=== PATIENT | male | born 1970 | race African-American/Black ===

== ENCOUNTER 2021-03-29 13:37 | Outpatient (CLI) | payer OTHER, SELFPAY ==
--- NOTE | ~2021-03-29 | CT_ITS ---
EXAMINATION: CT lumbar spine wo con DATE: 03/29/2021 14:11 INDICATION: Low back pain. Lumbar fusion. TECHNIQUE: Computed tomography (CT) of the lumbar spine was performed without intravenous contrast. A utomated exposure control and iterative reconstruction technique were employed. The dose-length produ ct was 399.00 mGy-cm. COMPARISON: None FINDINGS: There is 5 degrees levocurvature of thoracolumbar spine. There is 3 mm retrolisthesis of L2 on L3 and L3 on L4. There are changes of anterior and posterior fusion procedures from L4 to S1 with healed interbody bone graft, anterior plate and screws, and right-sided pedicle screws. There is mod erately decreased disc height at T12-L1, mildly decreased disc height at L1-L2, severely decreased di sc height at L2-L3, and moderately decreased disc height at L3-L4 with endplate remodeling. Osseous c entral spinal canal is developmentally small in lumbar spine. The following disc levels are specifica lly discussed: L1-L2: The disc is bulging. There is no facet joint osteoarthritis. There is mild bilateral neural fo raminal stenosis. There is mild central canal stenosis. L2-L3: The disc is bulging. There is severe left facet joint osteoarthritis. There is moderate bilate ral neural foraminal stenosis. There is mild central canal stenosis. L3-L4: The disc is bulging. There is mild bilateral facet joint osteoarthritis. There is mild right a nd moderate left neural foraminal stenosis. There is mild central canal stenosis. L4-L5: There is mild bilateral facet joint hypertrophy. There is mild left neural foraminal stenosis. There is no central canal stenosis. L5-S1: There is mild right and moderate left facet joint hypertrophy. There is mild bilateral neural foraminal stenosis. There is no central canal stenosis. IMPRESSION: 1. Severe lumbar spondylosis. 2. Anterior and posterior fusion procedures from L4 to S1. Reviewed, dictated and finalized at location D. SALES CONSULTANT
--- NOTE | ~2021-03-29 | CT_ITS ---
EXAMINATION: CT pelvis wo con DATE: 03/29/2021 14:11 INDICATION: Low back pain TECHNIQUE: High resolution computed tomography (CT) of the pelvis was performed without intravenous c ontrast. Additional sagittal and coronal reconstructions were performed. Automated exposure control a nd iterative reconstruction technique were employed. The dose-length product was 225.68 mGy-cm. COMPARISON: None FINDINGS: No fracture or evident osteonecrosis. L4-S1 combined instrumented anterior and posterior spinal fusio n with incorporated bone graft cages at both disc spaces, anterior plate and screw fixation of both l evels and right-sided vertical mingo and pedicle screw fixation. Mild osteoarthritis at the bilateral h ip and sacroiliac joints. Chondrocalcinosis at the bilateral acetabular labrum. The right anterior wa ll of the bladder projects slightly into a small right inguinal hernia. Within the right inguinal can al is a 3.7 x 1.7 x 1.7 cm ovoid region of near fluid attenuation which could represent either fluid or potentially the right testis. Visualized portions of the bowels in the pelvis are normal. Prostato megaly measuring 5.5 x 4.1 cm. IMPRESSION: 1. L4-S1 combined instrumented anterior and posterior spinal fusion. 2. Bilateral labral chondrocalcinosis with mild osteoarthritis at both hips. 3. Mild osteoarthritis at the bilateral sacral iliac joints. 4. Ovoid region of near fluid attenuation along the right inguinal canal which could represent a smal l amount of ascites or potentially the right testis. Correlate with physical exam and/or scrotal ultr asound as clinically indicated. Reviewed, dictated and finalized at location A. CTOR CLIENT IMPRESSION: 1. L4-S1 combined instrumented anterior and posterior spinal fusion. 2. Bilateral labral chondrocalcinosis with mild osteoarthritis at both hips. 3. Mild osteoarthritis at the bilateral sacral iliac joints. 4. Ovoid region of near fluid attenuation along the right inguinal canal which could represent a small amount of ascites or potentially the right testis. Irene elate with physical exam and/or scrotal ultrasound as clinically indicated.
== END 2021-03-29 13:38 ==
LOC: MICIMG 13:40
PROVIDERS: PCP Family Medicine; Visit Provider Family Medicine
DX: M54.50 Low back pain, unspecified (principal); Z98.1 Arthrodesis status; M16.0 Bilateral primary osteoarthritis of hip; M47.898 Other spondylosis, sacral and sacrococcygeal region; M47.816 Spondylosis without myelopathy or radiculopathy, lumbar region
CPT/HCPCS: 72131; 72192

== ENCOUNTER 2022-04-14 07:45 | Outpatient (CLI) | payer OTHER, SELFPAY ==
--- NOTE | ~2022-04-14 | MR_ITS ---
EXAMINATION: MR cervical spine wo con DATE: 04/14/2022 08:25 INDICATION: Neck pain, spinal stenosis. Injured at work. TECHNIQUE: Magnetic resonance imaging (MRI) of the cervical spine was performed without intravenous c ontrast. Sequences included sagittal T2-weighted FSE, sagittal T2-weighted FS FSE, sagittal T1-weight ed FSE, axial MERGE, and axial T2-weighted FSE. COMPARISON: X-ray C-spine, same date FINDINGS: Cervical spine straightening. Craniocervical association and atlantoaxial joint are intact, with mild edematous/fluid signal change and mild degenerative change. Normal alignment. Mild anterio r wedge deformity at C6, height loss at C6 and C7 with mild diffuse edematous marrow signal change. M arrow signal change in the superior aspect of T1 likely related to degenerative disc changes. Multile adam disc height loss and dehydration. Thinning of the mid cervical cord. Abnormal cord signal spannin g C4-C6. Normal cervicomedulary junction. The following disc levels are specifically discussed: C2-C3: The disc does not extend beyond the endplate margin. There is mild uncovertebral joint osteoar thritis. There is mild facet joint osteoarthritis. There is no neural foraminal stenosis. There is no central canal stenosis. C3-C4: Mild diffuse bulge. There is moderate bilateral uncovertebral joint osteoarthritis. There is m oderate left and mild right facet joint osteoarthritis. There is severe left and moderate right neura l foraminal stenosis. There is moderate central canal stenosis. C4-C5: Large diffuse bulge with a small central protrusion. There is moderate bilateral uncovertebral joint osteoarthritis. There is moderate bilateral facet joint osteoarthritis. There is severe bilate ral neural foraminal stenosis. There is severe central canal stenosis. C5-C6: Large diffuse bulge. There is moderate bilateral uncovertebral joint osteoarthritis. There is mild bilateral facet joint osteoarthritis. There is severe bilateral neural foraminal stenosis. There is severe central canal stenosis. C6-C7: Large diffuse bulge. There is moderate bilateral uncovertebral joint osteoarthritis. There is mild bilateral facet joint osteoarthritis. There is moderate left and severe right neural foraminal s tenosis. There is moderate central canal stenosis. C7-T1: Mild diffuse bulge. There is severe bilateral uncovertebral joint osteoarthritis. There is mil d bilateral facet joint osteoarthritis. There is moderate bilateral neural foraminal stenosis. There is mild central canal stenosis. IMPRESSION: 1. Mild anterior wedge deformity at C6 with marrow edema at C6 and C7 which may be related to post tr aumatic change or degenerative change. 2. Severe central canal narrowing at C4-5 and C5-6 with abnormal signal change and thinning of the ce rvical cord. 3. Multilevel degenerative disc, uncovertebral joint, and facet changes, with varying degrees of neur al foraminal narrowing detailed above. Reviewed, dictated and finalized at location K. IAN TEACHER IMPRESSION: 1. Mild anterior wedge deformity at C6 with marrow edema at C6 and C7 which may be related to post traumatic change or degenerative change. 2. Severe central canal narrowing at C4-5 and C5-6 with abnormal signal change and thinning of the cervical cord. 3. Multilevel degenerative disc, uncovertebral joint, and facet changes, with v arying degrees of neural foraminal narrowing detailed above.
--- NOTE | ~2022-04-14 | XR_ITS ---
XR cervical spine 4-5V DATE: 04/14/2022 08:33 INDICATION: Difficulty flexing and extending neck. Spinal stenosis. TECHNIQUE: AP, lateral and flexion and extension lateral views COMPARISON: None FINDINGS: There is straightening of the cervical spine. C1 and C2 are normally aligned and the odonto id process is intact. No fracture or dislocation or locked facet or prevertebral soft tissue swelling . Mild degenerative disc disease at C3-4. Moderate degenerative disc disease and mild retrolisthesis at C4-5. Moderate degenerative disc disease C5-6 Moderately severe degenerative disc disease at C6-7 and C7-T1. There is uncovertebral joint spurring in the mid and lower cervical spine. No instability is noted on flexion or extension. IMPRESSION: Straightening of the cervical spine Cervical spondylosis Reviewed, dictated and finalized at location A. UCT PLANNER
== END 2022-04-14 07:46 | disposition home or self-care (01) ==
PROVIDERS: PCP Family Medicine; Visit Provider Neurological Surgery
DX: M48.02 Spinal stenosis, cervical region (principal); M50.30 Other cervical disc degeneration, unspecified cervical region; M47.892 Other spondylosis, cervical region
CPT/HCPCS: 72050; 72141

== ENCOUNTER 2022-07-13 10:22 | Outpatient (CLI) | payer OTHER, SELFPAY ==
--- NOTE | ~2022-07-13 | XR_ITS ---
XR cervical spine 4-5V 07/13/2022 12:18 Indication: Limited extension mobility. Chronic neck pain. Procedure: 4 views of the cervical spine Comparison: 04/14/2022 Findings: There is mild chronic wedge compression deformity of C6-7. There is disc narrowing at C3-4 through C7-T1. There are small ventral osteophytes at most cervical levels. No significant alteration of alignment with flexion/extension. No prevertebral soft tissue swelling. Odontoid process is sen l. There is mild multilevel uncinate hypertrophy at C3-4 through C6-7. Lung apices are normal. Impression: 1: Moderate cervical spondylosis unchanged. 2: Chronic wedge shaped deformity of C6 unchanged. Reviewed, dictated and finalized at location B. Impression: 1: Moderate cervical spondylosis unchanged. 2: Chronic wedge shaped deformity of C6 unchanged.
--- NOTE | 2022-07-13 10:47 | ECG_ITS ---
Measurements Intervals [place] Rate: 56 P: 41 AL: 152 QRS: 62 QRSD: 90 T: 56 QT: 379 QTc: 366 Interpretive Statements SINUS BRADYCARDIA BORDERLINE ECG NO PREVIOUS ECG AVAILABLE FOR COMPARISON Electronically Signed On 07-13-2022 16:51:55 CDT by Joe Huang M.D.
[2022-07-13 12:13] LABS: Basophils Percent Auto 0.5 % (0.2-1.2); Eosinophils Absolute Auto 0.3 K/mm3 (0-0.3); Eosinophils Percent Auto 3.4 % (0-4.4); Hematocrit 42.9 % (42.0-52.0); Hemoglobin 14.3 g/dL (14.0-18.0); Immature Granulocyte Absolute 0.06 K/mm3 (0.00-0.031); Immature Granulocyte Percent A 0.8 % (0-0.5); Lymphocytes Absolute Auto 3.33 K/mm3 (0.9-3.2); Lymphocytes Percent Auto 45.3 % (18.3-44.2); Mean Corpuscular HGB Conc 33.3 g/dl (32-36); Mean Corpuscular Hemoglobin 26.5 pg (26-34); Mean Corpuscular Volume 79.6 fl (80-100); Mean Platelet Volume 10.3 fl (7.4-10.4); Monocytes Absolute Auto 0.9 K/mm3 (0.1-0.6); Monocytes Percent Auto 11.6 % (2.6-8.5); Neutrophils Absolute Auto 2.8 K/mm3 (1.3-6.7); Neutrophils Percent Auto 38.4 % (45.5-73.1); Platelet Count Result 189 k/mm3 (150-375); Red Blood Count 5.39 M/mm3 (4.6-6.20); Red Cell Distribution Width 15.4 % (11.5-14.5); White Blood Count 7.4 K/mm3 (4.5-10.0)
[2022-07-13 12:17] LABS: Appearance Urine Clear (Clear); Bilirubin Urine Negative (Negative); Blood Urine Negative (Negative); Color Urine Yellow (Yellow); Glucose Urine UA Negative (Negative); Ketones Urine Negative (Negative); Leukocyte Esterase Ur Negative LEU/UL (Negative); Nitrate Urine Negative (Negative); Protein Urine Negative (Negative); Urobilinogen Urine 0.2 mg/dL (<2.0); pH Urine 6.5 (5.0-9.0)
[2022-07-13 12:21] LABS: Urine Cotinine NEGATIVE
[2022-07-13 12:23] LABS: Add Urine Microscopic? NO; Anion Gap 8 mmol/L (8-16); Blood Urea Nitrogen 11 mg/dL (9-20); Calcium 10.1 mg/dL (8.4-10.2); Carbon Dioxide 27 mmol/L (22-30); Chloride 103 mmol/L (98-107); Estimated Glomerular Filt Rate > 60; Glucose 83 mg/dL (65-110); Potassium 4.2 mmol/L (3.4-5.0); Sodium 138 mmol/L (137-145)
[2022-07-13 12:30] LABS: Prothrombin Time 12.7 Seconds (11.1-14.7)
[2022-07-13 12:31] LABS: Partial Thromboplastin Time 29.2 SECONDS (22.3-36.8)
== END 2022-07-13 10:23 | disposition home or self-care (01) ==
LOC: ANHSURGERY 10:27
PROVIDERS: PCP Family Medicine; Visit Provider Neurological Surgery
DX: Z01.818 Encounter for other preprocedural examination (principal); M48.02 Spinal stenosis, cervical region; M47.812 Spondylosis without myelopathy or radiculopathy, cervical region; M48.52XA Collapsed vertebra, not elsewhere classified, cervical region, initial encounter for fracture; Z87.891 Personal history of nicotine dependence; R00.1 Bradycardia, unspecified; I10 Essential (primary) hypertension; E78.5 Hyperlipidemia, unspecified
CPT/HCPCS: 72050; 80048; 80307; 81003; 85025; 85610; 85730; 86850; 86900; 86901; 93005

== ENCOUNTER 2022-09-24 13:56 | Outpatient (CLI) | payer OTHER, SELFPAY ==
[2022-09-24 14:40] LABS: Mean Corpuscular HGB Conc 33.3 g/dl (32-36); Mean Corpuscular Hemoglobin 26.8 pg (26-34); Mean Corpuscular Volume 80.5 fl (80-100); Mean Platelet Volume 9.6 fl (7.4-10.4); Platelet Count Result 210 k/mm3 (150-375); Red Blood Count 5.22 M/mm3 (4.6-6.20); Red Cell Distribution Width 15.3 % (11.5-14.5); White Blood Count 7.1 K/mm3 (4.5-10.0)
[2022-09-24 14:42] LABS: Appearance Urine Clear (Clear); Bilirubin Urine Negative (Negative); Blood Urine Negative (Negative); Color Urine Yellow (Yellow); Glucose Urine UA Negative (Negative); Ketones Urine Negative (Negative); Leukocyte Esterase Ur Negative LEU/UL (Negative); Nitrate Urine Negative (Negative); Protein Urine Negative (Negative); Specific Grav Ur 1.012 (1.001-1.035); pH Urine 6.5 (5.0-9.0)
[2022-09-24 14:46] LABS: Add Urine Microscopic? NO
[2022-09-24 14:49] LABS: Prothrombin Time 13.5 Seconds (11.1-14.7)
[2022-09-24 14:50] LABS: Anion Gap 7 mmol/L (8-16); Blood Urea Nitrogen 10 mg/dL (9-20); Calcium 9.8 mg/dL (8.4-10.2); Carbon Dioxide 27 mmol/L (22-30); Chloride 106 mmol/L (98-107); Estimated Glomerular Filt Rate > 60; Glucose 87 mg/dL (65-110); Potassium 3.7 mmol/L (3.4-5.0); Sodium 140 mmol/L (137-145)
[2022-09-24 15:00] LABS: Urine Cotinine NEGATIVE
== END 2022-09-24 13:57 | disposition home or self-care (01) ==
LOC: ANHSURGERY 13:59
PROVIDERS: PCP Family Medicine; Visit Provider Neurological Surgery
DX: M48.02 Spinal stenosis, cervical region (principal); F17.200 Nicotine dependence, unspecified, uncomplicated; Z01.818 Encounter for other preprocedural examination
CPT/HCPCS: 80048; 80307; 81003; 85027; 85610; 85730; 86850; 86900; 86901

== ENCOUNTER 2022-09-26 18:52 | Observation (INO) | payer OTHER, SELFPAY ==
[2022-07-13 10:09] VITALS: BMI 26.4
--- NOTE | 2022-07-13 10:19 | PC.NURSE ---
Report to the Outpatient Waiting Room, entrance under the green pavilion located off [facility], at time 6:00 on date 07/24/22. Planned Procedure Time: 7:30. Time changes happen often and if your time is changed the preop area will call you the afternoon before. - You and your visitor will be asked to self-screen and do not enter if you have any COVID symptoms. - A mask is optional within the hospital at this time. Patients may have clear liquids (water, carbonated beverages, clear teas, apple juice) until 3 hours prior to surgery (4:30) with a maximum of 20 ounces. - No food from midnight until time of surgery Take the following medications with a SIP of water the morning of surgery: AMLODIPINE, PAIN PILL IF NEEDED DO NOT STOP ANY OF YOUR OTHER PRESCRIPTION MEDICATIONS PRIOR TO SURGERY?EXCEPT THE FOLLOWING Medications to discontinue per physician: VITAMINS/SUPPLEMENTS Date to take last dose: 07/20/22 Please no make-up, nail upper sorbian, hairspray, perfume, deodorant, or body powder the day of surgery. No jewelry (including any body piercings) or valuables the day of surgery, leave them at home. Please take a shower or bath the night before, or the morning of, surgery with an antibacterial soap. Wear comfortable, loose fitting clothing. - Jewelry must be removed prior to entering the operating room. Rings and piercings that are not removed may be cut off. - The hospital will not accept responsibility for valuables. - Please leave all valuables, including medications, at home the day of surgery. If you are going home after surgery, a licensed driver trainee must drive you home. - NO public transportation without another adult if you receive anesthesia. - We recommend that an adult stay with you for 24 hours following discharge. - We also recommend that you do not drive, make important decision, drink alcoholic beverages, or take any drugs that were not prescribed by your health care provider for at least 24 hours after your discharge time. Follow any additional instructions given to you from your surgeon. If you or anyone in your household have experienced Covid symptoms in the past week, please notify your surgeon or the nurse liaison at the phone number below for possible testing. Telephone instructions given to PT - MANNY MENDES and asked if any additional questions and then verbalized understanding. Patient advised to call surgeon office or pre surgery nurse liaison [phone] if any additional questions.
--- NOTE | 2022-07-23 10:57 | PCCCNOTE ---
Phone call to Dr. Ayala's office sw [place], she states that appeal done last week and she is trying to get a hold of the direct contact at insurance but hasn't reached yet for an answer. Gypsy states that she will follow up with once she is able to get determination. Gypsy confirms care coordinators phone number.
[2022-09-19 14:21] VITALS: BMI 26.4
--- NOTE | 2022-09-19 14:22 | PC.NURSE ---
Report to the Outpatient Waiting Room, entrance under the green pavilion located off [facility], at time 6:00 on date 09/25/22. Planned Procedure Time: 8:00. Time changes happen often and if your time is changed the preop area will call you the afternoon before. - You and your visitor will be asked to self-screen and do not enter if you have any COVID symptoms. - A mask is optional within the hospital at this time. Patients may have clear liquids (water, carbonated beverages, clear teas, apple juice) until 3 hours prior to surgery (5:00) with a maximum of 20 ounces. - No food from midnight until time of surgery Take the following medications with a SIP of water the morning of surgery: AMLODIPINE, PAIN PILL IF NEEDED DO NOT STOP ANY OF YOUR OTHER PRESCRIPTION MEDICATIONS PRIOR TO SURGERY EXCEPT THE FOLLOWING Medications to discontinue per physician: VITAMINS/SUPPLEMENTS Date to take last dose: 09/22/22 Please no make-up, nail hebrew, hairspray, perfume, deodorant, or body powder the day of surgery. No jewelry (including any body piercings) or valuables the day of surgery, leave them at home. Please take a shower or bath the night before, or the morning of, surgery with an antibacterial soap. Wear comfortable, loose fitting clothing. - Jewelry must be removed prior to entering the operating room. Rings and piercings that are not removed may be cut off. - The hospital will not accept responsibility for valuables. - Please leave all valuables, including medications, at home the day of surgery. If you are going home after surgery, a licensed class b truck driver must drive you home. - NO public transportation without another adult if you receive anesthesia. - We recommend that an adult stay with you for 24 hours following discharge. - We also recommend that you do not drive, make important decision, drink alcoholic beverages, or take any drugs that were not prescribed by your health care provider for at least 24 hours after your discharge time. Follow any additional instructions given to you from your surgeon. If you or anyone in your household have experienced Covid symptoms in the past week, please notify your surgeon or the nurse liaison at the phone number below for possible testing. Telephone instructions given to PT - MANNY MENDES and asked if any additional questions and then verbalized understanding. Patient advised to call surgeon office or pre surgery nurse liaison [phone] if any additional questions.
--- NOTE | 2022-09-24 13:23 | PCCCNOTE ---
Fax received from Dr. Ayala's office showing OP approval valid 07/23-01/22/23 Auth #, [id number]. Authorization reviewed, called back to Dr. Ayala's office benoit Vanessa-explained that this approved as outpatient- Outpatient Extended Recovery. Rasheeda verbalizes understanding and while notify team.
[2022-09-25] VITALS (14 sets, daily range): BP systolic 103–133; BP diastolic 63–90; PULSE 61–90; RESP 14–20; TEMP 36.2–36.9; O2SAT 96–100
--- NOTE | 2022-09-25 07:24 | P.PNAN_ITS ---
Anes - Initial Pre Proc Eval Procedure: Operation Date: 09/25/22 08:00 Proposed Procedures p Posterior Cervicothoracic Decompression and Fusion C3 -T2 - Liss Ayala MD Date/Time: 09/25/22 07:24 Surgeon: Liss Ayala MD Pre Op Diagnosis: Cerv Stenosis Patient Data Age: 52 Gender: M Height: 1.55 m Weight: 63.5 kg Allergies Allergy/AdvReac Type Severity Reaction Status Date / Time No Known Allergies Allergy Verified 09/25/22 07:24 Home Medications Medication Instructions Recorded Confirmed Type amlodipine 10 mg tablet 10 mg PO DAILY 04/03/22 09/19/22 History atorvastatin 20 mg tablet 20 mg PO DAILY 04/03/22 09/19/22 History cholecalciferol (vitamin D3) 10 10 mcg PO DAILY 04/03/22 09/19/22 History mcg (400 unit) capsule hydrocodone 5 mg-acetaminophen 325 1 tablet PO Q8H PRN Pain 04/03/22 09/19/22 History mg tablet omega 5-uvw-qzc-fish oil 60 mg-90 1 cap PO DAILY 04/03/22 09/19/22 History mg-500 mg capsule (Fish Oil) Patient hx anesthesia problems: none Family hx anesthesia problems: none Results Review: All pre-operative results and documents have been reviewed as part of the pre- operative evaluation. [facility] Past Medical History Medical History High cholesterol Hypertension Surgical History Surgical History Fusion of spine Family History Family History Other Asthma Breast cancer Sickle-cell anemia Social History Social History Smoking status: Former smoker Tobacco type: cigars Smoking end date: 06/13/22 Alcohol intake: current Drinks per week: 7 Substance use: current Substance use type: marijuana Lack of Transportation: No Lack of Food: Never True Current Housing: I Have Housing Concerned About Future Housing: No Difficulty Paying Gas/Electric Bills: No Difficulty Paying for Meds: No Currently Unemployed: No Education: Decline to Answer Difficulty w/ Childcare or Family Care: No Living arrangements: with family Spiritual care concerns: No Anes - Eval Final PreProcedure Day of Procedure 09/25/22 07:24 Patient weight: normal Heart: regular rate and rhythm Lungs: decreased breath sounds Airway: Mallampati scale class III Neurological: alert and oriented Last oral intake: >/= 8 hours ASA classification: III Emergent: no Anesthetic plan: proceed Anesthesia type and monitoring: general ETT and standard monitoring Results Review: All pre-operative results and documents have been reviewed as part of the pre- operative evaluation. Informed Consent: The patient's anesthetic plan and its attendant risks and benefits were discussed with the patient/family/POA. Questions were solicited and answers provided to the satisfaction of the patient/family/POA.
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
--- NOTE | 2022-09-25 08:09 | WPDHPUPDATE1 ---
History and Physical Update Update Date/Time: 09/25/22 08:09 History and Physical has been reviewed, including an updated exam of the patient. There are NO changes in the patient's condition. Risks, benefits, and alternatives have been discussed and questions answered. Patient agrees to proceed with procedure.
[2022-09-25] MEDS: ceFAZolin 2 GM/D5W 50 ML 2 GM/50 ML BAG IVPB (08:13)
[2022-09-25] MEDS: LIDO 1%/EPINEPHRINE 1:100,000 50 ML VIAL 10 ML INFILTRATE (09:10)
[2022-09-25] MEDS: BACITRACIN OINTMENT 15 GM TUBE 1 APPLIC TOPICAL (09:10)
--- NOTE | 2022-09-25 10:28 | W.PM.PROC2 ---
Procedure Note - Detailed Date of Procedure 09/25/22 Pre-op Diagnosis Cerv Stenosis with myelopathy Post-op Diagnosis Same Procedure Performed Posterior cervical decompression and fusion C3-T2 Surgeon Liss Ayala MD Senior Windows Engineer Salinas Jones MD Anesthesia General Indications Nolan Richter is a very pleasant? 52 year old? male who presents at the request of? himself with signs and symptoms of? pain, sensory symptoms, weakness, as well as difficulties with balance and dexterity all consistent with a cervical myelopathic picture in the setting of severe multilevel cervical stenosis that occurs in the setting of cervical congenital stenosis on imaging.? the patient has objective findings also consistent with myelopathy that include hyperreflexia, a positive Shira's sign, as well as gait disturbance.? He has tried treatments that include? formal physical therapy as well as interventional measures.. In the office today the most concerning symptom to the patient is that he is struggling to work as a result of these symptoms.? He is limited both by the pain but also by his increasing difficulties with balance and dexterity.? His clinical symptoms as well as findings on examination and imaging are all consistent with a diagnosis of cervical myelopathy. The patient and I have had an extended discussion in the office? regarding the options for management of these clinical symptoms and radiographic findings. We have discussed the option of additional physical therapy or repeated interventional pain management strategies including ONEIL or ablative procedures. In this case we have more specifically discussed that in the setting of cervical stenosis with clinical myelopathic symptoms, I would not advocate for further nonsurgical measures. We have discussed the clinical diagnosis of cervical myelopathy.? We have discussed that in the setting of cervical stenosis with spinal cord compression and cord signal change, with signs and symptoms of myelopathy at today's visit, the most appropriate next step would be to consider surgical intervention.? In this particular instance, surgery would entail a posterior cervical decompression and fusion from C3-T2.? The patient expresses understanding.? He is interested in pursuit of surgery. ? we have discussed the natural history of cervical stenosis with myelopathy and that given significant limitations in terms of overall function, the patient will likely remain with at least some degree of neurological deficits even with surgery and that the primary goal of surgery is to prevent further neurological deterioration. We have? discussed that surgery is not a guarantee of buddhist of function but that offers our best chance for recovery of function and will help to prevent further neurological deterioration. ? I have explained the indications for surgery as well as the risks, including but not limited to bleeding, infection, CSF leak, numbness, weakness, paralysis, stroke, coma, even . We have discussed the risk of pseudarthrosis, hardware failure, adjacent level disease, and even the need for further surgery. We have discussed the fundamentals of the surgical procedure and the typical recovery from surgery. He indicates understanding and asks us to proceed The patient does note that he has a history of smoking cigars.? He was able to stop smoking at the time of his 2016 surgery.? He indicates that he will stop smoking for this surgery as well.?Nicotine testing performed yesterday was negative. we have discussed the importance of smoking cessation in terms of the risk for pseudoarthrosis. Description of Procedure The patient was brought into the operating room where general anesthesia was induced without complications.? A neutral position was used due to cervical stenosis.? Appropriate monitoring and access was achieved.? SSEP and MEP monitoring was obtained. the patient was turned into a prone position on the operating table.? The he
[2022-09-25] MEDS: LACTATED RINGERS 1,000 ML 30 ML IV CONT ×3 (11:04→11:54)
[2022-09-25] MEDS: fentaNYL CITRATE INJ (*CRX) 100 MCG/2 ML VIAL 25 MCG IV PUSH ×4 (11:23→11:54)
--- NOTE | 2022-09-25 13:12 | ADMGEN ---
This patient, Nolan Richter, was admitted to Medical Room 249-01. Patient/family oriented to hospital policies and general routines including ID bracelet, bed and alarms, visiting hours, pain management, procedures, bathroom and other care routines, personal items, smoking policy, room service/diet, and visiting hours. Information on how to activate the Rapid Response Team has been discussed. Patient/Family are encouraged to report perceived risks to care and to ask questions if they do not understand what they are told or what they should do.
[2022-09-25] MEDS: oxyCODONE HCL (*CRX) 5 MG TAB IR PO (13:32)
[2022-09-25] MEDS: CYCLOBENZAPRINE HCL 10 MG TABLET PO (13:32)
--- NOTE | 2022-09-25 15:08 | PCPTNOTE ---
Attempted PT evaluation, patient refused due to pain. RN aware. Will follow.
--- NOTE | 2022-09-25 17:25 | PCPTNOTE ---
On 09/25/22, the student, [Aleah Coleman], provided care and completed [facility] documentation on this patient. I have reviewed the student's documentation and agree with the findings.
[2022-09-25] MEDS: ceFAZolin 1 GM/NS 50 ML 1 GM/50 ML BAG IVPB ×2 (18:00→23:51)
[2022-09-25] MEDS: oxyCODONE/ACETAMINOPHEN (*CRX) 10-325 MG TABLET 1 TAB PO (19:29)
[2022-09-25] MEDS: DOCUSATE SODIUM 100 MG CAPSULE PO (20:54)
--- NOTE | 2022-09-25 21:51 | WPDCN ---
Assessment and Plan Assessment and plan (1) Stenosis of cervical spine with myelopathy: Code(s): M48.02 - Spinal stenosis, cervical region; G99.2 - Myelopathy in diseases classified elsewhere Status: Acute Assessment and Plan: Postoperative day 0 status post posterior cervical decompression and fusion C3-T2. Wound care, pain control, and DVT prophylaxis deferred to the primary service. Check baseline labs in a.m. (2) Hypertension: Code(s): I10 - Essential (primary) hypertension Status: Acute Assessment and Plan: Blood pressures were reviewed and they have been stable postoperatively. Resume antihypertensives and monitor. (3) Hyperlipidemia: Code(s): E78.5 - Hyperlipidemia, unspecified Status: Acute Assessment and Plan: Continue statin and check LFTs in a.m. Plan Thank you for allowing us to participate in this patient's care. Please do not hesitate to contact us with any questions. Time spent on patient encounter: 40 minutes. HPI Data of Consult Date/Time: 09/25/22 21:15 Requesting Physician: Liss Ayala MD Consult Narrative Reason for consult: Postoperative medical management. Narrative: This is a very pleasant 52-year-old gentleman with hypertension, hyperlipidemia, and chronic myelopathy whom the hospitalist service has been consulted for help managing his medical conditions postoperatively. He reports ongoing issues with upper extremity pain, weakness, sensory changes, and gait disturbances despite conservative outpatient treatment and he elected for surgery today. He is now status post posterior cervical decompression and fusion from C3-T2. Surgery seemed to go well with no immediate complications documented and an estimated blood loss of 100 mL. Postoperatively he is doing well and has minimal discomfort. He has been up to the chair without issue. He reports that the sensory changes in his right hand seemed to be improving already. He denies fever, chills, sweats, chest pain, shortness a breath, nausea, and vomiting. He does not having acute weakness, sensory changes, or paresthesias. Review of Systems Review of Systems: Twelve systems were reviewed. No fever, chills, or sweats. No recent cold or flu symptoms. He is quite healthy for his age in believes his chronic medical conditions, namely hypertension hyperlipidemia, are well controlled on medication. No known cardiac or pulmonary disease. No history of venous thromboembolism. Except as documented, all other systems were reviewed and are negative. [facility] Past Medical History Medical History (Updated 09/25/22 @ 21:56 by Telma Boucher PA-C) Hyperlipidemia Hypertension Surgical History Surgical History (Updated 09/25/22 @ 21:55 by Telma Boucher PA-C) History of fusion of cervical spine History of lumbar fusion L4-S1. History of spinal fusion Posterior cervical decompression and fusion C3-T2 on 09/25/2022. Lumbar fusion L4-S1. Family History Family History Other Asthma Breast cancer Sickle-cell anemia Social History Social History (Updated 09/25/22 @ 23:38 by Telma Boucher PA-C) Social History: Surrogate medical decision maker: Kirstin Rober, spouse. Code status: Full code. Smoking packs per day: 1 Smoking cigarettes per day: 20.0 Years smoked: 20 Smoking pack-years: 20.00 Smoking status: Former smoker Tobacco type: cigarettes Alcohol intake: current Drinks per week: 7 Substance use: current Substance use type: marijuana Lack of Transportation: No Lack of Food: Never True Current Housing: I Have Housing Concerned About Future Housing: No Difficulty Paying Gas/Electric Bills: No Difficulty Paying for Meds: No Currently Unemployed: No Education: Decline to Answer Difficulty w/ Childcare or Family Care: No Living arrangements: with family M[place]
[2022-09-26] VITALS (7 sets, daily range): BP systolic 90–119; BP diastolic 55–78; PULSE 68–81; RESP 16–18; TEMP 35.9–37.3; O2SAT 84–99
--- NOTE | ~2022-09-26 | XR_ITS ---
EXAMINATION: XR fluoroscopy no charge DATE: 09/25/2022 10:27 INDICATION: C3-T2 decompression and fusion TECHNIQUE: 3 fluoroscopic images of the cervical spine were obtained during procedure performed by Dr Keon Ayala. Radiologist was not present for the imaging or procedure. The amount of fluoroscopy time use d during this procedure was 0.2 minutes. COMPARISON: 07/13/2022 FINDINGS: Gin Inspector image redemonstrates multilevel moderate cervical spondylosis with chronic anterior w edging of the C6 vertebral body. The procedure noted mid C7 vertebral bodies are not clearly visualiz ed. Metallic instrument projects of the soft tissues posterior to the lower cervical spine. Endotrach eal tube projects in expected position anterior to the cervical spine. Subsequent images demonstrate retractors at the margins of a lucent surgical exposure of the soft tissues posterior to the cervical spine and laminectomies with posterior spinal fusion including bilateral vertical mingo and laminar ma ss fixation extending from at least C3 through C6. There is more caudal extension of the decompressio n and fusion reportedly to T2 is not clearly visualized due to underpenetration resulting from the manning perimposed shoulders. IMPRESSION: 1. Fluoroscopy utilized during reported C3-T2 decompression and posterior spinal fusion. See procedur e note for further detail. Reviewed, dictated and finalized at location A. IMPRESSION: 1. Fluoroscopy utilized during reported C3-T2 decompression and posterior spina l fusion. See procedure note for further detail.
[2022-09-26 05:47] LABS: Hematocrit 37.6 % (42.0-52.0); Hemoglobin 12.4 g/dL (14.0-18.0); Mean Corpuscular Hemoglobin 26.4 pg (26-34); Platelet Count Result 199 k/mm3 (150-375); Red Cell Distribution Width 14.8 % (11.5-14.5); White Blood Count 16.5 K/mm3 (4.5-10.0)
[2022-09-26 06:02] LABS: Alanine Aminotransferase 38 U/L (6-50); Albumin Level 3.8 g/dL (3.5-5.1); Alkaline Phosphatase 47 U/L (38-126); Anion Gap 4 mmol/L (8-16); Aspartate Amino Transferase 68 U/L (17-59); Bilirubin,Total 0.7 mg/dL (0.2-1.3); Blood Urea Nitrogen 10 mg/dL (9-20); Calcium 9.5 mg/dL (8.4-10.2); Carbon Dioxide 29 mmol/L (22-30); Chloride 104 mmol/L (98-107); Estimated CRCL calculation 77 ml/min; Estimated Glomerular Filt Rate > 60; Glucose 109 mg/dL (65-110); Sodium 137 mmol/L (137-145)
[2022-09-26] MEDS: oxyCODONE/ACETAMINOPHEN (*CRX) 10-325 MG TABLET 1 TAB PO ×3 (07:42→19:53)
--- NOTE | 2022-09-26 08:49 | PM.IMPN ---
Progress Note: A&P Assessment and Plan (1) Stenosis of cervical spine with myelopathy: Code(s): M48.02 - Spinal stenosis, cervical region; G99.2 - Myelopathy in diseases classified elsewhere Status: Acute (2) Hypertension: Qualifiers: Hypertension type: primary hypertension Qualified Code(s): I10 - Essential (primary) hypertension Code(s): I10 - Essential (primary) hypertension Status: Acute (3) Hyperlipidemia: Qualifiers: Hyperlipidemia type: unspecified Qualified Code(s): E78.5 - Hyperlipidemia, unspecified Code(s): E78.5 - Hyperlipidemia, unspecified Status: Acute Plan Posterior cervical decompression and fusion C3-T2 -POD 1 with Hemovac drain present. Primary care is dictated by neurosurgery. -Adequate pain control with Oxy 5-10 mg every 4 hours with morphine and fentanyl prn for breakthrough. Bowel regimen ordered with Senokot. -Outpatient therapy approved per care coordination note from 09/25. -Disposition to be determined by primary team Hypertension -107-119/58-55. HR 70's. -Continue with amlodipine 10 mg daily Hyperlipidemia -continue with home atorvastatin 20 mg daily -continue fish oil Subjective Date/time seen: 09/26/22 08:49 Interval history: Reason for consult: Postoperative medical management. Narrative: This is a very pleasant 52-year-old gentleman with hypertension, hyperlipidemia, and chronic myelopathy whom the hospitalist service has been consulted for help managing his medical conditions postoperatively. He reports ongoing issues with upper extremity pain, weakness, sensory changes, and gait disturbances despite conservative outpatient treatment and he elected for surgery today. He is now status post posterior cervical decompression and fusion from C3-T2. Surgery seemed to go well with no immediate complications documented and an estimated blood loss of 100 mL. Postoperatively he is doing well and has minimal discomfort. He has been up to the chair without issue. He reports that the sensory changes in his right hand seemed to be improving already. He denies fever, chills, sweats, chest pain, shortness a breath, nausea, and vomiting. He does not having acute weakness, sensory changes, or paresthesias. Interval History: 09/26: POD 1 posterior cervical decompression and fusion from C3-T2. He is doing well this morning. Seen sitting up in the chair, eating breakfast. He said this morning was rough because of pain but now that he has his prn medications on board his pain is manageable. He has some numbness to his right hand but notes that it is even more improved since yesterday. His appetite is improving slowly and he is voiding appropriately. Overall he looks well and is ready to discharge home under neurosurgery's discretion. Review of Systems Review of Systems: All systems reviewed & are unremarkable except as noted in HPI and below Exam Narrative: General: well appearing, well developed, appears stated age. Neuro: Alert and orientated x 4. PERRLA. Cranial nerves 2-12 intact without focal deficit. HEENT: normocephalic, atraumatic. Mucous membranes moist. Neck supple without JVD or lymphadenopathy. Limited cervical range of motion s/p cervical fusion. Respiratory: clear to auscultation bilaterally posteriorly and anteriorly. No rales/rhonic/wheezes. Cardiovascular: Regular rate and rhythm, normal S1-S2 upon ascultation. No murmurs, rubs, or clicks. PMI is nondisplaced. Abdomen: Soft, flat, non-distended and non-tender. Bowel sounds present to all four quadrants. Extremities: No cyanosis, clubbing, or edema present. Pulses are palpable 2/2. Active ROM to all four extremities. Strength 5/5 to BUE and BLE. Numbness to right upper extremity. Skin: Warm, dry, and intact, without rash, erythema, or lesion. Surgical incision to posterior cervical spine with surgical dressing in place with scant drainage. Hemovac drain in place with serosanguineous
[2022-09-26] MEDS: ceFAZolin 1 GM/NS 50 ML 1 GM/50 ML BAG IVPB ×2 (09:09→16:48)
[2022-09-26] MEDS: amLODIPine BESYLATE 5 MG TABLET 10 MG PO (09:10)
[2022-09-26] MEDS: ATORVASTATIN 20 MG TABLET PO (09:10)
[2022-09-26] MEDS: CHOLECALCIFEROL 400 UNITS TABLET (VIT D) PO (09:10)
[2022-09-26] MEDS: DOCUSATE SODIUM 100 MG CAPSULE PO ×2 (09:10→19:53)
--- NOTE | 2022-09-26 10:05 | WPDANESPN ---
Anes - Prog Note Post-Op Date/Time: 09/26/22 10:05 Cardiovascular status: normal Respiratory status: normal Airway patency: baseline Mental status: baseline Post-Op hydration status: normal Vital Signs: Last Vital Signs Temp 98.4 F 09/26/22 05:22 Pulse 81 09/26/22 05:22 Resp 18 09/26/22 05:22 BP 107/58 L 09/26/22 05:22 Pulse Ox 98 09/26/22 05:22 O2 Del Method Room Air 09/25/22 16:10 O2 Flow Rate 2 09/25/22 13:34 Pain Score (VAS): 0/10 I/O: Intake & Output 09/25/22 09/26/22 09/26/22 23:59 07:59 15:59 Intake Total 290 50 240 Output Total 440 190 Balance -150 -140 240 Laboratory Tests 09/26/22 05:33 09/26/22 05:33 09/26/22 05:33 WBC 16.5 H RBC 4.70 Hgb 12.4 L Hct 37.6 L MCV 80.0 MCH 26.4 MCHC 33.0 RDW 14.8 H Plt Count 199 MPV 10.0 Sodium 137 Potassium 4.0 Chloride 104 Carbon Dioxide 29 Anion Gap 4 L BUN 10 Creatinine 0.70 Estim Creat Clear Calc 77 Estimated GFR > 60 Glucose 109 Calcium 9.5 Magnesium 2.0 Total Bilirubin 0.7 AST 68 H ALT 38 Alkaline Phosphatase 47 Total Protein 7.0 Albumin 3.8 Post-procedural complaints: none Patient Feedback: Patient satisfied with anesthetic care.
[2022-09-26] MEDS: CYCLOBENZAPRINE HCL 10 MG TABLET PO ×2 (12:16→19:53)
[2022-09-26] MEDS: MORPHINE SULFATE (*CRX) 2 MG/ML INJ IV PUSH (21:07)
[2022-09-27] MEDS: ceFAZolin 1 GM/NS 50 ML 1 GM/50 ML BAG IVPB (00:04)
[2022-09-27] MEDS: oxyCODONE/ACETAMINOPHEN (*CRX) 10-325 MG TABLET 1 TAB PO ×2 (00:07→04:46)
[2022-09-27] MEDS: CYCLOBENZAPRINE HCL 10 MG TABLET PO (04:46)
[2022-09-27 05:24] VITALS: BP 100/84; PULSE 81; RESP 18; TEMP 36.8; O2SAT 100
[2022-09-27] MEDS: MORPHINE SULFATE (*CRX) 2 MG/ML INJ IV PUSH (06:04)
--- NOTE | 2022-09-27 06:40 | WPDNEUROSGPN ---
Subjective Date/time seen: 09/27/22 06:40 Interval history: patient reports improved upper and lower extremity function - better use of hands still with musculoskeletal neck pain but reasonably controlled with percocet and flexeril drain output with 90 cc overnight ambulated in halls yesterday, tolerating po, and voiding Patient expresses interest in discharge to home Will plan to d/c drain this am and plan discharge to home this morning patient should follow up with me in office in 6 weeks Objective Data Vital Signs Vital Signs: Vital Signs - 24 hr 09/26/22 10:02 09/26/22 08:00 09/26/22 14:23 Temperature 98.1 F 96.7 F L Pulse Rate 73 73 74 Respiratory Rate 18 18 16 Blood Pressure 107/78 119/74 Pulse Oximetry 84 L 84 L 99 Oxygen Delivery Room Air 09/26/22 20:51 09/26/22 20:00 09/27/22 05:24 Temperature 98.3 F 98.3 F Pulse Rate 74 74 81 Respiratory Rate 18 16 18 Blood Pressure 111/63 100/84 Pulse Oximetry 99 99 100 Oxygen Delivery Room Air Intake/Output Intake/Output: Intake & Output 09/24/22 09/25/22 09/26/22 09/27/22 23:59 23:59 23:59 23:59 Intake Total 2140 1360 300 Output Total 1190 260 90 Balance 950 1100 210 Meds/Results Medications: Active Medications Generic Name Dose Route Start Last Admin Trade Name Freq PRN Reason Stop Dose Admin Al Hydrox/Mg Hydrox/Simethicone 20 ml 09/25/22 10:37 Mag Hydrox/Al Hydrox/Simeth 30 Ml Udc PO Q4H PRN Indigestion/Heartburn Amlodipine Besylate 10 mg 09/26/22 09:00 09/26/22 09:10 Amlodipine Besylate 5 Mg Tablet PO 10 mg DAILY LUKASZ Administration Atorvastatin Calcium 20 mg 09/26/22 09:00 09/26/22 09:10 Atorvastatin 20 Mg Tablet PO 20 mg DAILY LUKASZ Administration Bisacodyl 10 mg 09/25/22 10:37 Bisacodyl 10 Mg Suppository RECTAL DAILY PRN Constipation Cyclobenzaprine HCl 10 mg 09/25/22 10:39 09/27/22 04:46 Cyclobenzaprine Hcl 10 Mg Tablet PO 10 mg TID PRN Administration Muscle Spasms Docusate Sodium 100 mg 09/25/22 21:00 09/26/22 19:53 Docusate Sodium 100 Mg Capsule PO 100 mg Q12HR LUKASZ Administration Fentanyl Citrate 25 mcg 09/25/22 07:25 09/25/22 11:54 Fentanyl Citrate Inj (*Crx) 100 Mcg/2 Ml Vial IV PUSH 25 mcg Q2M PRN Administration Pain Cefazolin Sodium 1 gm in 50 mls @ 100 mls/hr 09/25/22 16:00 09/27/22 00:30 Ancef 1 Gm/Ns 50 Ml IVPB Infused Q8H LUKASZ Infusion Morphine Sulfate 2 mg 09/25/22 10:39 09/27/22 06:04 Morphine Sulfate (*Crx) 2 Mg/Ml Inj IV PUSH 2 mg Q2H PRN Administration Pain Rated 7-10 Ondansetron HCl 4 mg 09/25/22 10:37 Ondansetron Inj 4 Mg/2 Ml Vial IV PUSH Q8H PRN Nausea And Vomiting Oxycodone HCl 5 mg 09/25/22 07:25 09/25/22 13:32 Oxycodone Hcl (*Crx) 5 Mg Tab Ir PO 5 mg ONCE PRN Administration Pain Oxycodone/Acetaminophen 1 tablet 09/25/22 10:39 Oxycodone/Acetaminophen (*Crx) 5-325 Mg Tablet PO Q4H PRN Mild Pain (1-3) Oxycodone/Acetaminophen 1 tab 09/25/22 10:39 09/27/22 04:46 Oxycodone/Acetaminophen (*Crx) 10-325 Mg Tablet PO 1 tab Q4H PRN Administration Moderate Pain (4-6) Senna/Docusate Sodium 1 tab 09/25/22 10:37 Senna/Docusate Sodium Tablet PO HS PRN Constipation Vitamin D 400 units 09/26/22 09:00 09/26/22 09:10 Cholecalciferol 400 Units Tablet (Vit D) PO 400 units DAILY LUKASZ Administration Radiology Results: ITS Impressions Fluoroscopy 09/25/22 11:02 IMPRESSION: 1. Fluoroscopy utilized during reported C3-T2 decompression and posterior spinal fusion. See procedure note for further detail.
[2022-09-27] MEDS: amLODIPine BESYLATE 5 MG TABLET 10 MG PO (08:34)
[2022-09-27] MEDS: ATORVASTATIN 20 MG TABLET PO (08:34)
[2022-09-27] MEDS: CHOLECALCIFEROL 400 UNITS TABLET (VIT D) PO (08:34)
[2022-09-27] MEDS: DOCUSATE SODIUM 100 MG CAPSULE PO (08:39)
--- NOTE | 2022-09-27 09:13 | PCOTNOTE ---
The patient treatment was not able to be completed on 09/27/2022. Patient stated he already signed his discharge paper and is waiting on his to pick him up.
--- NOTE | 2022-09-28 16:35 | PM.DS ---
DS: Admitting Diagnosis Discharge Date 09/27/22 Admitting Diagnosis cervical myelopathy DS: Discharge Diagnosis Discharge Diagnosis Plan same DS: Summary Hospital Course Hospital Course: patient admitted to the hospital for cervical myelopathy. He underwent a posterior cervical decompression and fusion from C3 through T2 without complications. On postoperative day 2 he was stable for discharge to home. He noted improvement in his myelopathic symptoms after surgery. Status at Discharge Functional status at discharge: independent ambulation Overall status at discharge: patient is back to baseline Time Spent with Patient Time attestation: Total time spent providing and/or coordinating discharge services: Time spent: Less than 30 minutes Discharge Plan Discharge Attending physician on discharge: Liss Ayala Consulting providers: Telma Boucher; Vitaliy Simons; Gordy Nguyễn; Tammi Hung; Gera Melgar Discharging Clinician: Liss Ayala Anticipated Discharge Date/Time: 09/27/22 09:00 Patient Disposition: Home, Self-Care Activity: may shower Diet: regular Wound Care Instructions: incision open to air Discharge Instructions: Patient may discharge to home. No heavy lifting for 6 weeks. May shower but no swimming or soaking incision for 6 weeks. Patient Instructions: Antibiotic Form Stand Alone Forms: General Discharge Information Follow-up/Referrals: iLss Ayala MD [Physician] - 6 Weeks Discharge Medications: New oxycodone-acetaminophen [Percocet] 5-325 mg tablet 1 tablet PO Q4H PRN (Reason: pain) Qty: 40 0RF cyclobenzaprine 10 mg tablet 10 mg PO TID PRN (Reason: muscle spasm) Qty: 30 0RF Continued amlodipine 10 mg tablet 10 mg PO DAILY atorvastatin 20 mg tablet 20 mg PO DAILY cholecalciferol (vitamin D3) 10 mcg (400 unit) capsule 10 mcg PO DAILY omega 9-hfd-[id number]-fish oil [Fish Oil] 60-90-500 mg capsule 1 cap PO DAILY cranberry extract 250 mg Tablet 250 mg PO DAILY PRN (Reason: Bladder Spasms) Discontinued hydrocodone-acetaminophen 5-325 mg tablet 1 tablet PO Q8H PRN (Reason: Pain) Date of admission: 09/26/22 18:52 Primary Care Provider: Abundio Mcneill Admitting Provider: Liss Ayala Attending physician on admission: Liss Ayala Condition: Stable
== END 2022-09-27 10:23 | disposition home or self-care (01) ==
LOC: ANHSURGERY 19:20 → ANH2MED 19:20
PROVIDERS: Physician Assistant; Admitting Provider Neurological Surgery; PCP Family Medicine; Visit Provider Neurological Surgery
PROC: (CPT 22600; principal; 2022-09-25 08:00)
DX: M48.02 Spinal stenosis, cervical region (principal); G99.2 Myelopathy in diseases classified elsewhere; I10 Essential (primary) hypertension; E78.5 Hyperlipidemia, unspecified; Z87.891 Personal history of nicotine dependence; F10.90 Alcohol use, unspecified, uncomplicated; F12.90 Cannabis use, unspecified, uncomplicated; Z79.891 Long term (current) use of opiate analgesic; Z79.899 Other long term (current) drug therapy; Z98.890 Other specified postprocedural states
CPT/HCPCS: 22600; 22614 ×3; 22610; 22842; 20936; 36415; 80053; 83735; 85027; 97161; 97165; 97530; 97535; 99199; A9270; C1713; C9290; G0378; G0379; J0330; J0690; J1100; J1170; J2250; J2270; J2405; J2704; J3010; J3370; J7030; J7120

== ENCOUNTER 2023-12-24 08:41 | Outpatient (CLI) | payer MEDICARE, MEDICAID, SELFPAY ==
--- NOTE | 2023-12-24 09:15 | NEURO_ITS ---
Impression: # Complains of numbness, Non-diabetic. Status post cervical surgery. # No Carpal Tunnel Syndrome # No Ulnar Neuropathy # Needle/EMG Exam show minimal neurologic changes. Could be related to previous cervical surgery. Nerve Conduction Studies Anti Sensory Summary Table Stim Site NR Peak (ms) P-T Amp (?V) Site1 Site2 Delta-P (ms) Dist (cm) Junior (m/s) Left Median Anti Sensory (2-3nd Digit) Wrist 3.1 23.3 Wrist 2-3nd Digit 3.1 14.0 45 Wrist 3.3 56.1 Wrist 2-3nd Digit 3.1 14.0 45 Right Median Anti Sensory (2-3nd Digit) Wrist 3.2 34.0 Wrist 2-3nd Digit 3.2 14.0 44 Wrist 3.2 56.0 Wrist 2-3nd Digit 3.2 14.0 44 Left Radial Anti Sensory (Base 1st Digit) Wrist 1.9 37.7 Wrist Base 1st Digit 1.9 0.0 Right Radial Anti Sensory (Base 1st Digit) Wrist 2.1 28.1 Wrist Base 1st Digit 2.1 0.0 Left Ulnar Anti Sensory (5th Digit) Wrist 2.7 30.6 Wrist 5th Digit 2.7 14.0 52 Right Ulnar Anti Sensory (5th Digit) Wrist 2.4 22.9 Wrist 5th Digit 2.4 14.0 58 Motor Summary Table Stim Site NR Onset (ms) O-P Amp (mV) Site1 Site2 Delta-0 (ms) Dist (cm) Junior (m/s) Left Median Motor (Abd Poll Brev) Wrist 3.0 5.8 Elbow Wrist 4.7 26.0 55 Elbow 7.7 5.1 Right Median Motor (Abd Poll Brev) Wrist 3.1 8.1 Elbow Wrist 5.1 28.0 55 Elbow 8.2 6.9 Left Ulnar Motor (Abd Dig Minimi) Wrist 2.5 7.5 A Elbow Wrist 4.6 26.0 57 A Elbow 7.1 5.4 Right Ulnar Motor (Abd Dig Minimi) Wrist 2.3 4.6 A Elbow Wrist 4.5 26.0 58 A Elbow 6.8 4.4 F Wave Studies NR F-Lat (ms) L-R F-Lat (ms) Left Median (Mrkrs) (Abd Poll Brev) 28.15 0.80 Right Median (Mrkrs) (Abd Poll Brev) 28.95 0.80 Left Ulnar (Mrkrs) (Abd Dig Min) 29.28 0.45 Right Ulnar (Mrkrs) (Abd Dig Min) 28.83 0.45 EMG Side Muscle Nerve Root Ins Act Fibs Amp Dur Recrt Comment Right 1stDorInt Ulnar C8-T1 Nml Nml Nml Nml Nml Right Ext Indicis Radial (Post Int) C7-8 Nml Nml Nml Nml Nml Right Ext Digitorum Radial (Post Int) C7-8 Nml Nml Nml Nml Nml Right BrachioRad Radial C5-6 Nml Nml Nml >12ms +1 Right PronatorTeres Median C6-7 Nml Nml Nml >12ms +1 Right Abd Poll Brev Median C8-T1 Nml Nml Nml Nml Nml Right ABD Dig Min Ulnar C8-T1 Nml Nml Nml Nml Nml Left 1stDorInt Ulnar C8-T1 Nml Nml Nml Nml Nml Left Ext Indicis Radial (Post Int) C7-8 Nml Nml Nml Nml Nml Left Ext Digitorum Radial (Post Int) C7-8 Nml Nml Nml Nml Nml Left BrachioRad Radial C5-6 Nml Nml Nml >12ms +1 Left PronatorTeres Median C6-7 Nml Nml Nml >12ms +1 Left Abd Poll Brev Median C8-T1 Nml Nml Nml Nml Nml Left ABD Dig Min Ulnar C8-T1 Nml Nml Nml Nml Nml MTDD
== END 2023-12-24 08:42 | disposition home or self-care (01) ==
LOC: ANHNEURO 08:43
PROVIDERS: PCP Family Medicine; Visit Provider Neurological Surgery
DX: G56.01 Carpal tunnel syndrome, right upper limb (principal)
CPT/HCPCS: 95886; 95911